=== PATIENT | female | born 1995 | race Caucasian/White ===

== ENCOUNTER 2017-03-09 10:21 | Emergency (ER) | payer BC ==
[2017-03-09 10:36] LABS: % IMMATURE GRANULYOCYTES 0.4 % (0.0-1.1); ABSOLUTE IMMATURE GRANULOCYTES 0.04 10^3/uL (0.00-0.10); ADD DIFF? NO; ADD MORPH? NO; ADD SCAN? NO; ATYPICAL LYMPHOCYTE FLAG 10 (0-99); FRAGMENT RBC FLAG 0 (0-99); HEMATOCRIT 38.3 % (38.0-47.0); HEMOGLOBIN 13.9 g/dL (12.6-16.3); LEFT SHIFT FLG 0 (0-99); LIPEMIA HEMOLYSIS FLAG 90 (0-99); MEAN CELL HEMOGLOBIN 32.9 pg (27.9-34.1); MEAN CELL HEMOGLOBIN CONCENTR. 36.3 g/dL (32.4-36.7); MEAN CELL VOLUME 90.5 fL (81.5-99.8); MEAN PLATELET VOLUME 8.9 fL (8.7-11.7); PLATELET CLUMPS FLAG 20 (0-99); PLATELET COUNT 184 10^3/uL (150-400); RED BLOOD CELL COUNT 4.23 10^6/uL (4.18-5.33); RED CELL DISTRIBUTION WIDTH 12.6 % (11.5-15.2)
--- NOTE | 2017-03-09 10:40 | EDPHY ---
H & P Time Seen by Provider: 03/09/17 10:31 HPI/ROS: CHIEF COMPLAINT: , vaginal bleeding HISTORY OF PRESENT ILLNESS: The patient is a at 15 weeks who presents to the emergency department with painless vaginal bleeding which began earlier today. The patient reported she has had a IUP documented on ultrasound at 12 weeks. The patient has no significant past medical history. She does report her blood type is Rh negative. The patient denies any abdominal pain. She did have some mild presyncope after developing the bleeding. The patient denies any headache, chest pain, shortness of breath, asymmetric calf pain or swelling or edema. REVIEW OF SYSTEMS: A comprehensive 10 point review of systems is otherwise negative aside from elements mentioned in the history of present illness. Source: Patient Exam Limitations: No limitations - Medical/Surgical History PMH: Past medical history: - Family History Significant Family History: No pertinent family hx - Social History Smoking Status: Never smoked - Physical Exam Exam: General Appearance: Alert, no distress Eyes: Pupils equal and round no pallor or injection ENT, Mouth: Mucous membranes moist Respiratory: There are no retractions, lungs are clear to auscultation Cardiovascular: Regular rate and rhythm Gastrointestinal: Abdomen is soft and nontender, no masses, bowel sounds normal Neurological: 5/5 strength all 4 extremities Skin: Warm and dry, no rashes Musculoskeletal: Neck is supple nontender Extremities: symmetrical, full range of motion Constitutional: Initial Vital Signs Temperature (C) 37.3 C 03/09/17 10:35 Heart Rate 99 03/09/17 10:35 Respiratory Rate 18 03/09/17 10:35 Blood Pressure 126/80 H 03/09/17 10:35 O2 Sat (%) 97 03/09/17 10:35 O2 Delivery Mode Room Air Medical Decision Making - Diagnostics Imaging Results: Imaging Impressions Obstetrics Ultrasound 03/09/17 10:31 Impression: There is a single viable intrauterine gestation with no overt structural anomaly, although the anatomic survey is very limited given the early stage in gestation. Biometry is concordant with menstrual dating. There is no evidence of placenta previa or abruption. The patient should return at 20 weeks gestation for more complete anatomic screening and repeat biometry. Findings and recommendations were discussed with Noel Coello at 12:17 PM, on 03/09/2017. ED Course/Re-evaluation: The patient presents to the ED with vaginal bleeding in the setting of a 15 week . The patient has no active bleeding in the ED. Her abdominal examination is benign. Her vital signs are stable. The patient was taken for a pelvic ultrasound which demonstrates a viable intrauterine without evidence of abruption or previa. The patient is noted to be Rh negative. RhoGAM has been ordered. The patient has been instructed to return to the ED for severe bleeding or other concerns. She will follow up with her regular physician. I reexamined the patient at 1:00 p.m.. She is resting comfortably in bed. She is hemodynamically stable and in no acute distress. She is awaiting her RhoGAM injection. She will be discharged home with customary aftercare instructions and return precautions. Differential Diagnosis: Differential diagnosis considered includes ectopic , placental abruption, placental previa - Data Points Laboratory Results: Laboratory Results 03/09/17 10:30 03/09/17 10:30 03/09/17 03/09/17 03/09/17 10:30 10:30 10:30 WBC 9.58 10^3/uL H 10^3/uL (3.80-9.50) RBC 4.23 10^6/uL 10^6/uL (4.18-5.33) Hgb 13.9 g/dL g/dL (12.6-16.3) Hct 38.3 % % (38.0-47.0) MCV 90.5 fL fL (81.5-99.8) MCH 32.9 pg pg (27.9-34.1) MCHC 36.3 g/dL g/dL (32.4-36.7) RDW 12.6 % % (11.5-15.2) Plt Count 184 10^3/uL 10^3/uL (150-400) MPV 8.9 fL fL (8.7-11.7) Neut % (Auto) 67.5 % % (39.3-74.2) Lymph % (Auto) 26.9 % % (15.0-45.0) [place] % (Auto) 5.0 % % (4.5-13.0) Eos % (Auto) 0.1 % L % (0.6-7.6) Baso % (Auto) 0.1 % L % (0.3-1.7) Nucleat RBC Rel Count 0.0 % % (0.0-0.2) Absolute Neuts (auto) 6.46 10^3/uL 10^3/uL (1.70-6.50) Absolute Lymphs (auto) 2.58 10^3/uL 10^3/uL (1.00-3.00) Absolute Monos (auto) 0.48 10^3/uL 10^3/uL (0.30-0.80) Absolute Eos (auto) 0.01 10^3/uL L 10^3/uL (0.03-0.40) Absolute Basos (auto) 0.01 10^3/uL L 10^3/uL (0.02-0.10) Absolute Nucleated RBC 0.00 10^3/uL 10^3/uL (0-0.01) Immature Gran % 0.4 % % (0.0-1.1) Immature Gran # 0.04 10^3/uL 10^3/uL (0.00-0.10) Sodium 141 mEq/L mEq/L (134-144) Potassium 3.9 mEq/L mEq/L (3.5-5.2) Chloride 110 mEq/L mEq/L (97-110) Carbon Dioxide 16 mEq/l L mEq/l (22-31) Anion Gap 15 mEq/L mEq/L (8-16) BUN 5 mg/dL L mg/dL (7-23) Creatinine 0.6 mg/dL mg/dL (0.6-1.0) Estimated GFR > 60 Glucose 85 mg/dL mg/dL (70-100) Calcium 10.1 mg/dL mg/dL (8.5-10.4) Patient ABO/Rh B NEGATIVE Departure - Departure Disposition: Home, Routine, Self-Care Clinical Impression: Threatened Condition: Good Instructions: Threatened Miscarriage (ED) Additional Instructions: 1. Please return to the ED for severe pain, fever, heavy bleeding or other concerns. 2. Your ultrasound today demonstrates a normal intact without a obvious explanation for bleeding. 3. Please contact your regular skein bleacher to schedule a follow-up appointment.
[2017-03-09 11:05] LABS: ANION GAP 15 mEq/L (8-16); CALCIUM 10.1 mg/dL (8.5-10.4); CARBON DIOXIDE 16 mEq/l (22-31); CHLORIDE 110 mEq/L (97-110); CREATININE 0.6 mg/dL (0.6-1.0); GLOMERULAR FILTRATION RATE > 60; GLUCOSE 85 mg/dL (70-100); POTASSIUM 3.9 mEq/L (3.5-5.2); SODIUM 141 mEq/L (134-144)
[2017-03-09 12:20] VITALS: O2SAT 94
[2017-03-09 13:32] VITALS: BP 120/84; PULSE 80; RESP 14; TEMP 98.4
== END 2017-03-09 13:31 | disposition home or self-care (01) ==
DX: O20.0 Threatened abortion (principal); Z3A.15 15 weeks gestation of pregnancy